=== PATIENT | female | born 1985 | race African-American/Black ===

== ENCOUNTER 2018-05-16 23:09 | Emergency (ER) | payer OTHER ==
[~2018-05-16 23:09] MED LIST: ACE3 PO; ALB18R INH; ASPI-1471 PO; BUPR-472 PO; CHOL200038 PO; FLUO-201 PO; IBUP-136 PO; MULT-865 PO; OMEG500C5 PO; TRAZ100T31 PO; [UNRECOGNIZED DRUG - CODE] NS
[2018-05-16 23:10] VITALS: BP 137/84
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
== END 2018-05-16 23:22 | disposition home or self-care (01) ==
LOC: ER 23:17
DX: F10.920 Alcohol use, unspecified with intoxication, uncomplicated (principal)
CPT/HCPCS: 99281